=== PATIENT | male | born 1960 | race Caucasian/White ===

== ENCOUNTER → 2017-11-07 | Outpatient (CLI) | payer BC ==
[2017-11-07 15:52] LABS: PLATELET COUNT, AUTOMATED 230 K/uL (150-450)
== END ==
LOC: LAB 15:36
PROVIDERS: ATTEND Orthopaedic Surgery Hand Surgery
DX: M25.532 Pain in left wrist (principal); M25.432 Effusion, left wrist
CPT/HCPCS: 36415; 84550; 85027; 85651; 86038; 86140; 86430

== ENCOUNTER → 2017-12-25 | Outpatient (CLI) | payer BC ==
[~2017-12-25] MED LIST: GADOBENATE 529MG/1ML 15ML VIAL IVP ONE
--- NOTE | 2017-12-25 11:36 | RADIOLOGY IMAGING REPORT ---
FACILITY: [facility] PATIENT NAME: Santos Lopez : 1960 MR: [id number] V: [id number] EXAM DATE: ORDERING PHYSICIAN: AKASH RUIZ TECHNOLOGIST: [place]: [facility] [place] Patient: [place] Lopez : 1960 Visit/Account:[id number] Date of Sevice: 12/25/2017 WRIST LEFT W W/O CONTRAST COMPARISON: None. HISTORY: Left wrist pain, no injury. TECHNIQUE: Pre and postcontrast multiplanar MRI of the wrist utilizing T1 weighted and fluid sensitiv e sequences. Pre and postcontrast study was performed by request. A precontrast T1 fat-suppressed ser ies was not obtained. CONTRAST: 15 mL of MultiHance was given intravenously FINDINGS: BONES: There is normal carpal alignment and marrow signal. LIGAMENTS: The scapholunate and lunotriquetral ligaments are intact. The radial attachment of the tri angular fiber cartilage complex is intact and normal in signal. Equivocal thinning of the ulnar stylo id attachment of the TFCC, seen only on postcontrast coronal images. This could be due to a partial-t hickness ligamentous tear or volume averaging with adjacent soft tissue enhancement. FLUID: A small distal radioulnar joint effusion is present, with mild adjacent soft tissue enhanceme nt. There is no radiocarpal or midcarpal effusion and there is no evidence of a wrist ganglion. FLEXOR: The contents of the carpal tunnel, including the flexor tendons and median nerve are within normal limits, as are the contents of the Guyon's canal, including the ulnar nerve. EXTENSOR: The extensor tendon compartments are unremarkable. Although there is no definite signal ab normality in the extensor carpi ulnaris tendon on the noncontrast images, postcontrast axial series t here is mild apparent enhancement in the distal ECU tendon which is probably due to mild tendinosis. MUSCLES: There is no muscle atrophy or edema. OTHER: Negative. IMPRESSION: 1. Small distal radioulnar joint effusion with mild adjacent soft tissue enhancement. 2. Apparent extensor carpi ulnaris tendon enhancement probably representing mild tendinosis. 3. Equivocal thinning of the ulnar styloid attachment of the triangular fibrocartilage complex, seen only on postcontrast images which may be due to a partial-thickness TFC ligamentous tear or volume a veraging artifact. Report Dictated By: Tadeo Victor at 12/25/2017 11:09 AM Report E-Signed By: Tadeo Victor at 12/25/2017 11:32 AM WSN:[id number]
== END ==
LOC: MRI 03:34
PROVIDERS: ATTEND Internal Medicine
DX: M25.432 Effusion, left wrist (principal); M65.30 Trigger finger, unspecified finger
CPT/HCPCS: 73223; A9577

== ENCOUNTER 2018-10-18 00:25 | Day surgery (SDC) | payer BC ==
[~2018-10-18] VITALS: Ht 182.9 cm; Wt 97.5 kg
[~2018-10-18 00:25] MED LIST changes: +CELE-1 PO; -GADOBENATE 529MG/1ML 15ML VIAL IVP ONE; +LOSA50TA80 PO; +OMEP-126 PO
[2018-10-18 08:58] VITALS: BP 125/86
[2018-10-18] MEDS ORDERED: LIDOCAINE/SOD BICARB 8.4% SYR ID ONE (09:05)
[2018-10-18] MEDS ORDERED: NORMOSOL R SOLN(*) 1000 ML BAG 1,000 ML IV PRN (09:05)
[2018-10-18 10:03] VITALS: BP 113/82
[2018-10-18 10:28] VITALS: BP 107/78
[2018-10-18] MEDS ORDERED: LIDOCAINE MPF 1% 5 ML VIAL ONE (10:32)
[2018-10-18] MEDS ORDERED: PROPOFOL EMUL(*) 10MG/ML 20 ML 40 ML ONE (10:32)
[2018-10-18 10:54] VITALS: BP 131/92
[2018-10-18 11:00] VITALS: BP 125/79
== END 2018-10-18 11:10 | disposition home or self-care (01) ==
LOC: OR 00:25
PROVIDERS: ATTEND Family Medicine
DX: Z12.11 Encounter for screening for malignant neoplasm of colon (principal); I10 Essential (primary) hypertension; K21.9 Gastro-esophageal reflux disease without esophagitis; G47.33 Obstructive sleep apnea (adult) (pediatric)
CPT/HCPCS: 00812; 45378; J2001; J2704